=== PATIENT | male | born 1975 | race African-American/Black ===

== ENCOUNTER 2020-07-09 10:36 | Emergency (ER) | payer OTHER ==
[~2020-07-09] VITALS: Ht 170.2 cm; Wt 93.0 kg
[2020-07-09] MEDS ORDERED: IBUPROFEN 600MG TABLET PO STA (11:41)
[2020-07-09 12:19] LABS: BASOPHILS % 1.1 % (0.0-2.0); EOSINOPHILS % 1.4 % (0.0-5.0); HEMATOCRIT. 40.9 % (42.0-52.0); HEMOGLOBIN. 14.4 g/dL (14.0-18.0); LYMPHOCYTES % 35.1 % (20.0-50.0); MEAN CORPUSCULAR HEMOGLOBIN 30.6 pg (28.0-32.0); MEAN CORPUSCULAR VOLUME 87.1 fL (80.0-94.0); MEAN PLATELET VOLUME 7.4 fl (7.4-10.4); MONOCYTES % 8.1 % (2.0-8.0); NEUTROPHILS % 54.3 % (40.0-76.0); PLATELET 296 x1000/uL (130-400); RED CELL DISTRIBUTION WIDTH 13.3 % (11.6-14.6)
[2020-07-09 12:25] LABS: CHLORIDE 111 mEq/L (98-107)
[2020-07-09 13:13] VITALS: BP 131/98
== END 2020-07-09 13:24 | disposition home or self-care (01) ==
LOC: ER 11:09
DX: R07.89 Other chest pain (principal)
CPT/HCPCS: 36415; 71045; 80053; 83880; 84484; 85025; 93005; 99285

== ENCOUNTER 2024-06-03 14:32 | Emergency (ER) | payer OTHER ==
[~2024-06-03] VITALS: Ht 170.2 cm; Wt 98.0 kg
[2024-06-03 14:38] VITALS: O2SAT 99
[2024-06-03 14:39] VITALS: BP 152/100; PULSE 72; RESP 16; TEMP 36.9; O2SAT 99
[2024-06-03] MEDS: ACETAMINOPHEN 325MG TABLET PO ONE (15:23)
[2024-06-03] MEDS: KETOROLAC 30MG/ML VIAL IM ONE (15:23)
[2024-06-03 15:48] LABS: CLARITY URINE CLEAR (CLEAR); COLOR URINE YELLOW (YELLOW); GLUCOSE URINE NEGATIVE (NEGATIVE); KETONES URINE TRACE (NEGATIVE); LEUKOCYTE ESTERASE URINE NEGATIVE (NEGATIVE); NITRITE URINE NEGATIVE (NEGATIVE); OCCULT BLOOD URINE NEGATIVE (NEGATIVE); PH URINE 6.5 (4.5-8.0); PROTEIN URINE NEGATIVE (NEGATIVE); SPECIFIC GRAVITY URINE 1.026 (1.005-1.030)
[2024-06-03 16:12] LABS: BASOPHILS % 0.9 % (0.0-2.0); EOSINOPHILS % 1.6 % (0.0-5.0); HEMOGLOBIN. 13.8 g/dL (14.0-18.0); LYMPHOCYTES % 34.9 % (20.0-50.0); MEAN CORPUSCULAR HEMOGLOBIN 28.9 pg (28.0-32.0); MEAN CORPUSCULAR HGB CONC 32.9 g/dL (31.0-37.0); MEAN CORPUSCULAR VOLUME 87.7 fL (80.0-94.0); MEAN PLATELET VOLUME 7.6 fl (7.4-10.4); MONOCYTES % 6.1 % (2.0-8.0); NEUTROPHILS % 56.5 % (40.0-76.0); PLATELET 275 x1000/uL (130-400); RED BLOOD CELL COUNT 4.79 mill/uL (4.7-6.1); RED CELL DISTRIBUTION WIDTH 13.7 % (11.6-14.6); WHITE BLOOD COUNT 6.5 x1000/uL (4.5-11.0)
[2024-06-03 16:19] LABS: CHLORIDE 106 mEq/L (98-107); POTASSIUM 4.2 mEq/L (3.5-5.1); SODIUM 140 mEq/L (136-145)
[2024-06-03 16:20] LABS: CARBON DIOXIDE 26 mEq/L (21-32)
[2024-06-03 16:21] LABS: CALCIUM 9.5 mg/dL (8.7-10.4)
[2024-06-03 16:25] LABS: CREATININE 1.1 mg/dL (0.6-1.3); GLUCOSE 124 mg/dL (70-105)
[2024-06-03 16:26] LABS: UREA NITROGEN BLOOD 10 mg/dL (9-23)
[2024-06-03] MEDS ORDERED: TOPUD PO (16:40)
[2024-06-03] MEDS ORDERED: IBUP-2029 MT (16:41)
== END 2024-06-03 16:59 | disposition home or self-care (01) ==
LOC: ER 14:32
DX: G89.29 Other chronic pain (principal); M54.50 Low back pain, unspecified; H61.23 Impacted cerumen, bilateral; Z79.899 Other long term (current) drug therapy
CPT/HCPCS: 99284; 80048; 81003; 85025; 36415; 72100; 96372; J1885